=== PATIENT | male | born 1955 | race Caucasian/White ===

== ENCOUNTER 2018-03-18 23:12 | Inpatient (IN) | payer OTHER, MEDICAID ==
[~2018-03-18] VITALS: Ht 167.6 cm; Wt 81.6 kg
[~2018-03-18 23:12] MED LIST: DOCU-150; FURO20TA4; GLIM4TAB2; LACT10SO6 PO; MULT-1146 PO; PROP10TA10 PO; PROT40 PO; SPIR50TA5; THIA100T13 PO; folic acid PO
[2018-03-18] MEDS ORDERED: SODIUM CHLORIDE 0.9% 1,000 ML IV ONE (23:50)
[2018-03-19] VITALS (34 sets, daily range): BP systolic 96–164; BP diastolic 41–134
[2018-03-19] MEDS ORDERED: DEXTROSE 50% WATER 50ML SYRINGE IV ONE ×3 (00:15→01:45)
[2018-03-19 00:16] LABS: HEMATOCRIT. 25.9 % (42.0-52.0); HEMOGLOBIN. 8.7 g/dL (14.0-18.0); MEAN CORPUSCULAR HEMOGLOBIN 28.3 pg (28.0-32.0); MEAN CORPUSCULAR VOLUME 84.3 fL (80.0-94.0); MEAN PLATELET VOLUME 7.8 fl (7.4-10.4); PLATELET 137 x1000/uL (130-400); RED BLOOD CELL COUNT 3.07 mill/uL (4.7-6.1); RED CELL DISTRIBUTION WIDTH 18.8 % (11.6-14.6)
[2018-03-19 00:18] LABS: CHLORIDE 111 mEq/L (98-107)
[2018-03-19 00:21] LABS: INR 1.2; PROTHROMBIN TIME 12.2 sec (9.1-11.1)
[2018-03-19 00:22] LABS: ETHANOL BLOOD < 10 mg/dL
[2018-03-19] MEDS ORDERED: SODIUM CHLORIDE 0.9% 1,000 ML IV ONE (00:30)
[2018-03-19] MEDS ORDERED: NOREPINEPHRINE 4 MG in DEXT 5% WATER 246 ML IV ONE ×2 (00:30→09:15)
[2018-03-19] MEDS ORDERED: NOREPINEPHRINE 4MG/250ML PMX 250 ML IV ONE (00:33)
[2018-03-19 00:50] LABS: PLATELET ESTIMATE NORMAL
[2018-03-19 02:24] LABS: HEPATITIS B SURFACE ANTIGEN NEGATIVE
[2018-03-19] MEDS ORDERED: AZITHROMYCIN 500 MG in DEXT 5% WATER 250 ML IV SCH (02:30)
[2018-03-19 02:54] LABS: HEPATITIS A AB IGM NEGATIVE (NEGATIVE)
[2018-03-19 03:08] LABS: CLARITY URINE CLEAR (CLEAR); COLOR URINE YELLOW (YELLOW); KETONES URINE NEGATIVE (NEGATIVE); LEUKOCYTE ESTERASE URINE NEGATIVE (NEGATIVE); NITRITE URINE NEGATIVE (NEGATIVE); OCCULT BLOOD URINE NEGATIVE (NEGATIVE); PROTEIN URINE NEGATIVE (NEGATIVE); SPECIFIC GRAVITY URINE 1.008 (1.005-1.030); UROBILINOGEN URINE 0.2 E.U./dL (0.2-1.0)
[2018-03-19 03:17] LABS: *AMPHETAMINES SCREEN URINE NEGATIVE (NEGATIVE); *BARBITURATES SCREEN URINE NEGATIVE (NEGATIVE); *BENZODIAZEPINES SCREEN URINE NEGATIVE (NEGATIVE); *COCAINE SCREEN URINE NEGATIVE (NEGATIVE); METHADONE URINE SCREEN NEGATIVE (NEGATIVE); OPIATES URINE SCREEN NEGATIVE (NEGATIVE)
[2018-03-19 03:18] LABS: CANNABINOID URINE SCREEN NEGATIVE (NEGATIVE); PHENCYCLIDINE URINE SCREEN NEGATIVE (NEGATIVE)
[2018-03-19] MEDS ORDERED: LACTULOSE 20G/30ML UDC PO ONE (05:00)
[2018-03-19] MEDS ORDERED: ENOXAPARIN 40MG/0.4ML SYR SUBCUT ONE (05:15)
[2018-03-19] MEDS ORDERED: NOREPINEPHRINE 4MG/250ML PMX 250 ML IV NR (09:00)
[2018-03-19] MEDS ORDERED: DEXT 5%/0.45% NACL 1000ML 1,000 ML IV SCH (09:05)
[2018-03-19] MEDS ORDERED: MAGNESIUM/ALUMINUM HYDROXIDE/SIMETHICONE 30ML UDC PO PRN (09:15)
[2018-03-19] MEDS ORDERED: CLONIDINE 0.1MG TABLET PO PRN (09:15)
[2018-03-19] MEDS ORDERED: ONDANSETRON HCL 4MG/2ML INJ IV PRN (09:15)
[2018-03-19] MEDS ORDERED: ENOXAPARIN 40MG/0.4ML SYR SUBCUT SCH (09:15)
[2018-03-19] MEDS ORDERED: VANCOMYCIN 1 G PREMIX 200 ML IV SCH (09:15)
[2018-03-19] MEDS ORDERED: DEXTROSE 50% WATER 50ML SYRINGE IV PRN (09:15)
[2018-03-19] MEDS ORDERED: NA PHOS,M-B/NA PHOS,DI-BA ENEMA 118ML PR PRN (09:15)
[2018-03-19] MEDS ORDERED: DOCUSATE SODIUM 100MG CAPSULE PO PRN (09:15)
[2018-03-19] MEDS ORDERED: DIPHENHYDRAMINE 50MG/ML VIAL IV PRN (09:15)
[2018-03-19] MEDS ORDERED: ACETAMINOPHEN 650MG/20.3ML UDC GT PRN (09:15)
[2018-03-19] MEDS ORDERED: GUAIFENESIN 200MG/10ML SUGAR FREE UDC PO PRN (09:15)
[2018-03-19] MEDS ORDERED: ACETAMINOPHEN 650MG SUPP PR PRN (09:15)
[2018-03-19] MEDS ORDERED: PANTOPRAZOLE SODIUM 40 MG/VIAL IV NR (10:00)
[2018-03-19] MEDS ORDERED: INSULIN LISPRO 100 UNITS/ML SUBCUT SCH (10:08)
[2018-03-19] MEDS ORDERED: VANCOMYCIN 1 G PREMIX 200 ML IV NR (10:15)
[2018-03-19] MEDS ORDERED: ENOXAPARIN 40MG/0.4ML SYR SUBCUT NR (10:15)
[2018-03-19] MEDS ORDERED: PIPERACILLIN/TAZ 3.375G PREMIX 50 ML IV NR (11:00)
[2018-03-19] MEDS ORDERED: DEXT 5%/0.9% NACL 1,000 ML IV SCH (11:30)
[2018-03-19 13:03] LABS: BASOPHILS % 0.7 % (0.0-2.0); EOSINOPHILS % 2.5 % (0.0-5.0); HEMATOCRIT. 24.9 % (42.0-52.0); HEMOGLOBIN. 8.5 g/dL (14.0-18.0); LYMPHOCYTES % 9.5 % (20.0-50.0); MEAN CORPUSCULAR HEMOGLOBIN 28.4 pg (28.0-32.0); MEAN CORPUSCULAR VOLUME 83.1 fL (80.0-94.0); MEAN PLATELET VOLUME 7.7 fl (7.4-10.4); MONOCYTES % 6.8 % (2.0-8.0); NEUTROPHILS % 80.5 % (40.0-76.0); PLATELET 127 x1000/uL (130-400); RED CELL DISTRIBUTION WIDTH 18.4 % (11.6-14.6)
[2018-03-19 13:18] LABS: CHLORIDE 110 mEq/L (98-107)
[2018-03-19] MEDS ORDERED: NOREPINEPHRINE 4 MG in DEXT 5% WATER 246 ML IV PRN (16:15)
[2018-03-19] MEDS ORDERED: ALBUMIN HUMAN 25GM/100ML (25%) IV NR ×2 (16:30)
[2018-03-19] MEDS: BLOOD SUGAR DIAGNOSTIC STRIP TEST SCH ×2 (16:41→20:26)
[2018-03-19] MEDS: THIAMINE HCL 100MG TABLET PO SCH (16:43)
[2018-03-19] MEDS: PANTOPRAZOLE 40MG DR TABLET PO SCH (16:49)
[2018-03-19] MEDS: INSULIN LISPRO 100 UNITS/ML SUBCUT SCH ×2 (18:00→21:25)
[2018-03-19] MEDS: PIPERACILLIN/TAZ 3.375G PREMIX 50 ML IV SCH ×2 (18:00→23:09)
[2018-03-19] MEDS: IPRATROPIUM/ALBUTEROL 0.5-3(2.5)MG/3ML NEB HHN SCH (20:08)
[2018-03-19] MEDS: LACTULOSE 20G/30ML UDC PO SCH (21:25)
[2018-03-19 21:33] LABS: CREATINE KINASE 38 IU/L (39-308)
[2018-03-19 21:34] LABS: CREATINE KINASE MB FRACTION 1.2 ng/mL (0.5-3.6)
[2018-03-19] MEDS: VANCOMYCIN 1 G PREMIX 200 ML IV SCH (23:09)
[2018-03-19] MEDS: ENOXAPARIN 60MG/0.6ML SYR SUBCUT SCH (23:09)
[2018-03-20] VITALS (90 sets, daily range): BP systolic 79–183; BP diastolic 31–96
[2018-03-20] MEDS: ACETAMINOPHEN 325MG TABLET PO PRN ×3 (00:53→21:41)
[2018-03-20] MEDS: IPRATROPIUM/ALBUTEROL 0.5-3(2.5)MG/3ML NEB HHN SCH ×4 (01:16→21:04)
[2018-03-20] MEDS: BLOOD SUGAR DIAGNOSTIC STRIP TEST SCH ×4 (06:12→21:25)
[2018-03-20] MEDS: LACTULOSE 20G/30ML UDC PO SCH ×3 (06:12→21:25)
[2018-03-20] MEDS: PIPERACILLIN/TAZ 3.375G PREMIX 50 ML IV SCH ×3 (06:13→17:16)
[2018-03-20] MEDS: PANTOPRAZOLE 40MG DR TABLET PO SCH (06:13)
[2018-03-20] MEDS: INSULIN LISPRO 100 UNITS/ML SUBCUT SCH ×4 (06:14→21:24)
[2018-03-20 06:17] LABS: BASOPHILS % 0.8 % (0.0-2.0); EOSINOPHILS % 3.7 % (0.0-5.0); HEMATOCRIT. 23.2 % (42.0-52.0); HEMOGLOBIN. 7.8 g/dL (14.0-18.0); LYMPHOCYTES % 13.9 % (20.0-50.0); MEAN CORPUSCULAR HEMOGLOBIN 27.9 pg (28.0-32.0); MEAN CORPUSCULAR VOLUME 83.3 fL (80.0-94.0); MEAN PLATELET VOLUME 7.7 fl (7.4-10.4); MONOCYTES % 8.7 % (2.0-8.0); NEUTROPHILS % 72.9 % (40.0-76.0); PLATELET 117 x1000/uL (130-400); RED BLOOD CELL COUNT 2.78 mill/uL (4.7-6.1); RED CELL DISTRIBUTION WIDTH 18.7 % (11.6-14.6)
[2018-03-20 06:45] LABS: PHOSPHORUS 2.9 mg/dL (2.5-4.9)
[2018-03-20 06:46] LABS: LDL CHOLESTEROL 39 mg/dL (5-100)
[2018-03-20 06:48] LABS: CREATINE KINASE 33 IU/L (39-308); CREATINE KINASE MB FRACTION < 1.0 ng/mL (0.5-3.6); HDL CHOLESTEROL 25 mg/dL (40-59)
[2018-03-20 06:51] LABS: CHLORIDE 109 mEq/L (98-107)
[2018-03-20] MEDS: THIAMINE HCL 100MG TABLET PO SCH (08:20)
[2018-03-20] MEDS ORDERED: PANTOPRAZOLE SODIUM 40 MG/VIAL IV SCH (09:00)
[2018-03-20] MEDS ORDERED: FOLIC ACID/VITAMIN B COMP W-C TABLET PO SCH (09:00)
[2018-03-20] MEDS: VANCOMYCIN 1 G PREMIX 200 ML IV SCH ×2 (10:36→21:41)
[2018-03-20 12:50] LABS: T4 FREE 1.09 ng/dL (0.76-1.46)
[2018-03-20 16:11] LABS: CREATINE KINASE 28 IU/L (39-308)
[2018-03-20 16:12] LABS: CREATINE KINASE MB FRACTION < 1.0 ng/mL (0.5-3.6)
[2018-03-20] MEDS: ENOXAPARIN 60MG/0.6ML SYR SUBCUT SCH (21:41)
[2018-03-20 23:30] LABS: CREATINE KINASE 25 IU/L (39-308)
[2018-03-20 23:31] LABS: CREATINE KINASE MB FRACTION < 1.0 ng/mL (0.5-3.6)
== END 2018-03-20 23:40 | disposition short-term general hospital (02) | DRG 871 ==
LOC: ER 23:12 → MICUSO 03-19 02:40 → ENRESERV 03-19 14:13
PROVIDERS: ADMIT Family Medicine; ATTEND Family Medicine
PROC: 06HY33Z Insertion of Infusion Device into Lower Vein, Percutaneous Approach (ICD-10-PCS; principal; 2018-03-20)
PROC: 30233N1 Transfusion of Nonautologous Red Blood Cells into Peripheral Vein, Percutaneous Approach (ICD-10-PCS; 2018-03-20)
DX: A41.9 Sepsis, unspecified organism (principal); N17.0 Acute kidney failure with tubular necrosis; E43 Unspecified severe protein-calorie malnutrition; G93.41 Metabolic encephalopathy; J96.00 Acute respiratory failure, unspecified whether with hypoxia or hypercapnia; J98.11 Atelectasis; I82.403 Acute embolism and thrombosis of unspecified deep veins of lower extremity, bilateral; K72.90 Hepatic failure, unspecified without coma; K70.31 Alcoholic cirrhosis of liver with ascites; K80.20 Calculus of gallbladder without cholecystitis without obstruction; E11.649 Type 2 diabetes mellitus with hypoglycemia without coma; D63.1 Anemia in chronic kidney disease; D69.6 Thrombocytopenia, unspecified; E87.70 Fluid overload, unspecified; F10.21 Alcohol dependence, in remission; I12.9 Hypertensive chronic kidney disease with stage 1 through stage 4 chronic kidney disease, or unspecified chronic kidney disease; F10.20 Alcohol dependence, uncomplicated; I95.9 Hypotension, unspecified; N18.9 Chronic kidney disease, unspecified; W19.XXXA Unspecified fall, initial encounter; Y93.89 Activity, other specified; Y99.8 Other external cause status; Z79.84 Long term (current) use of oral hypoglycemic drugs; Z79.899 Other long term (current) drug therapy; Z83.3 Family history of diabetes mellitus; Y92.009 Unspecified place in unspecified non-institutional (private) residence as the place of occurrence of the external cause; Z87.11 Personal history of peptic ulcer disease; Z87.891 Personal history of nicotine dependence; Z98.42 Cataract extraction status, left eye; Z68.29 Body mass index [BMI] 29.0-29.9, adult
CPT/HCPCS: 36415; 71045; 71250; 73030; 73060; 74176; 76770; 78580; 80061; 80305; 82140; 82550; 82553; 82570; 82962; 83036; 83605; 83735; 83880; 84100; 84300; 84439; 84443; 84484; 85379; 86705; 86709; 86803; 86850; 86900; 86920; 87340; 93005; 93306; 93880; 93970; 96365; 99285; A6261; G0482; J0456; J1650; J1815; J2543; J3370; J3490; J7030; J7042; J7050; J7060; J7620; L3670; P9016; P9047